=== PATIENT | female | born 1975 | race Caucasian/White ===

== ENCOUNTER 2016-12-17 21:33 | Emergency (ER) | payer MEDICAID ==
[2016-12-17 22:19] VITALS: BMI 26.7
[2016-12-17] MEDS ORDERED: Dextrose 5%/Lactated Ringer's 1,000 ML IV SCH (22:30)
[2016-12-17 22:49] LABS: RBC URINE 2 /hpf (0-3); URINE BACTERIA MOD (<OCC); URINE BILIRUBIN NEGATIVE (NEGATIVE); URINE BLOOD NEGATIVE (NEGATIVE); URINE COLOR Yellow (YELLOW); URINE GLUCOSE (UA) NORMAL (Normal); URINE KETONE NEGATIVE (NEGATIVE); URINE LEUKOCYTE ESTERASE 1+ Leu/uL (Negative); URINE PROTEIN NEGATIVE (NEGATIVE); URINE UROBILINOGEN NORMAL mg/dL (0.2-1.0); WBC URINE 11 /hpf (0-5)
--- NOTE | 2016-12-17 23:58 | OBHP ---
Datetime: 12/17/2016 22:32 IP Adm Impression: , intrauterine IP Admit Plan: Discharge home Admit Comment, IP Provider: Patient is Turkmen-speaking; Voxy ID [id number] 41 y.o. , LMP 05/12/16, CIRA 02/16/17, EGA 31w 2d confirmed by sono 09/12/16 at 18w 2d, c/o sudd en onset left low back/flank pain, at 1000 hours upon awakening; pain scale now 7/10, with radiation to left lower abdomen. No precipitating factors. Took no pain meds. C/O heartburn x 2 weeks. Also c/ o discomfort in breathing "for a while" - not sure of onset. occurs when she is sleeping. Mostly slee ps on her side. (+) AFM. Denies vaginal bleeding, LOF, Ctx, dysuria or urinary frequency. c are: [facility]. Last visit 12/13/16; next visit 12/20/16. Diagnosed GDM 2 weeks ago; started on ora l hypoglycemic. Not yet seen bank operations officer. Started to keep F.S. log:- 12/16: 80s/117/?/151 (ate cheese) . P OB: x 3: all males, 1999, 3 Kg;; 2001, 2.7 Kg; 2005, 3 Kg. All in [place] P HEALTH RESEARCHER: 14 x monthly x 3 PMH: denies PSH: denies NKDA Meds: PNV; glyburide 2.5 mg po BID Soc Hx: denies tobacco, illicit drug or EtOH use. x 18 years; lives with and 3 chi ldren Fam Hx: Mother alive 69 y.o. - HTN, DM. Father age 65 - stomach cancer P.E.: as above. WD in discomfort, but NAD. Awake, alert, oriented to time person and place. Accomp anied by her brother and one of her sons Assessment: 41 yo P3, 31wk, A2GDM - newly diaganosed. Category 1 traicng. R/O UTI. Musculoskeletal pain of . Normal cardiac-related physiologic changes in . Clinically stable. Plan: 1) F.S. now (71 mg/dL) 2) IVFs 3) U/A 4) Pepcid 5) Tylenol 6) Observe Addendum: 2346 hours - S/P IVFs, tylenol and pepcid - reports feeling better all around. - U/A: leuk esterase 1+. Assessment: 41 yo P3, newly diagnosed A2 GDM. Early UTI; musculoskeletal pain of . Catego ry 1 tracing. Clinically stable. With help of brother, advised to drink at least 64 oz of water daily . Also counseled on prescription for UTI. Patient's questions were answered: very concerned about fet al well-being in light of diabetes. Advised importance of being compliant with taking her medications , following dietary recommendations. Patient expresesd an understanding and agrees. Clinically stable . Plan: 1) Rx: MacroBID 100 mg po BID x 7 days 2) Reviewed S/S PTL 3) Keep scheduled appointments 4) Discharge home Pelvic Type - PN: Adequate Extremities - PN: Normal Abdomen - PN: Normal Back - PN: Abnormal Breast - PN: Not Done Lungs - PN: Normal Heart - PN: Normal Thyroid - PN: Not Done Neurologic - PN: Normal HEENT - PN: Normal General - PN: Normal FHR - Baseline A Provider: 140 Comments, ACOG Physical Exam: Skin: warm, dry, intact Back: +/- left CVA tenderness versus tenderness over S-I joint Abdomen: gravid. Soft. (+) suprapubic tenderness. NO epigastric or RUQ tenderness All other systems reviewed - as per HPI Gestation - Est Wks by US: 31w 2d EGA AdmitDate IP: 31.2 Vital Signs Provider: Reviewed; Within Normal Limits IP Chief Complaint: Maternal discomfort NICHD Variability Prov Fetus A: Moderate 6-25bpm NICHD Accel Fetus A IP Provider: [id number] FHR Category Provider Fetus A: Category I NICHD Decel Fetus A IP Provider: None DTRs - PN: Not Done
== END 2016-12-17 23:50 | disposition home or self-care (01) ==
LOC: C.EROB 21:33
DX: O23.43 Unspecified infection of urinary tract in pregnancy, third trimester (principal); O24.415 Gestational diabetes mellitus in pregnancy, controlled by oral hypoglycemic drugs; Z3A.31 31 weeks gestation of pregnancy
CPT/HCPCS: 81001; 82948; 99283; J7120